=== PATIENT | female | born 1985 | race Caucasian/White ===

== ENCOUNTER 2024-01-26 12:16 | Observation (INO) ==
[2024-01-26 13:36] LABS: Urine Appearance Turbid; Urine Bilirubin Negative (Negative); Urine Blood 1+ (Negative); Urine Color Yellow; Urine Glucose Negative (Negative); Urine Ketones 1+ (Negative); Urine Nitrite 1+ (Negative); Urine Protein 1+ (>=30 mg/dL) (Negative); Urine Specific Gravity 1.011 (1.002-1.030); Urine Urobilinogen Negative (Negative); Urine pH 5.5 (5.0-8.0)
[2024-01-26 13:46] LABS: Urine Bacteria 2+ /HPF (Absent); Urine Red Blood Cell 3+(>10/hpf) /HPF (0-Trace); Urine Squamous Epithelial Cell Present /HPF (Absent); Urine White Blood Cell 3+(>20/hpf) /HPF (0-Trace)
[2024-01-26] MEDS: Lactated Ringers SEPSIS* BAG 2,450 ML IV ONE (15:30)
[2024-01-26 16:04] LABS: ABS Lymphocytes 0.7 10^3/uL (1.0-4.8); ABS Monocytes 1.5 10^3/uL (0.0-0.9); ABS Neutrophils 16.6 10^3/uL (1.5-7.6); Hematocrit 37.1 % (35-45); Hemoglobin 12.1 g/dL (11.5-14.3); Lymphocyte % 3.6 %; Mean Corpuscular Hemoglobin 27.9 pg (27-33); Mean Corpuscular Hgb Conc 32.6 g/dL (31-36); Mean Corpuscular Volume 85.5 fL (80-97); Mean Platelet Volume 8.5 fL (7.5-11.2); Platelet Count 246 10^3/uL (150-450); Red Blood Count 4.33 10^6/uL (3.63-4.92); Red Cell Distribution Width 16.2 % (12-17); White Blood Count 18.9 10^3/uL (3.8-11.8)
[2024-01-26 16:30] LABS: Albumin/Globulin Ratio 1.4 (1-3); C Reactive Protein 310.51 mg/L (<8.01); Calcium 8.8 mg/dL (8.6-10.3); Creatinine, Serum 0.91 mg/dL (0.51-0.95); Globulin 2.9 g/dL (2-4); Potassium 3.9 mmol/L (3.5-5.0); Total Bilirubin 1.2 mg/dL (0.2-1.0); Total Protein 6.9 g/dL (6.4-8.9); eGFR CKD-EPI 83.3 (>60)
[2024-01-26 16:35] LABS: Activated Partial Thrombo Time 37.4 seconds (26.0-38.0); INR 1.54 (0.85-1.14)
[2024-01-26] MEDS: cefTRIAXone 2 gm/50 mL D5W 2 GM/50 ML BAG IV ONE (16:43)
[2024-01-26 17:27] LABS: High Sensitivity Troponin 1 Hr 12 pg/mL (<15)
[2024-01-27] MEDS: Lactated Ringers 1000 ml BAG 1,000 ML IV SCH (00:02)
[2024-01-27 06:57] LABS: Hematocrit 32.3 % (35-45); Hemoglobin 10.5 g/dL (11.5-14.3); Mean Corpuscular Hemoglobin 28.2 pg (27-33); Mean Corpuscular Hgb Conc 32.7 g/dL (31-36); Mean Corpuscular Volume 86.5 fL (80-97); Mean Platelet Volume 8.6 fL (7.5-11.2); Platelet Count 195 10^3/uL (150-450); Red Blood Count 3.73 10^6/uL (3.63-4.92); Red Cell Distribution Width 16.3 % (12-17); White Blood Count 17.2 10^3/uL (3.8-11.8)
[2024-01-27] MEDS ORDERED: Iohexol 180 (CONTRAST) 10 ML SDV IV ONE (07:25)
[2024-01-27 07:46] LABS: Calcium 8.3 mg/dL (8.6-10.3); Creatinine, Serum 0.67 mg/dL (0.51-0.95); Magnesium 1.9 mg/dL (1.9-2.7); eGFR CKD-EPI 115.4 (>60)
[2024-01-27] MEDS ORDERED: fentaNYL 100 mcg/2 ml 50 MCG/ML VIAL ONE (08:04)
[2024-01-27] MEDS ORDERED: Midazolam 2 mg/2 ml VIAL 1 mg/ml 2 ml VIAL (2 mg) ONE (08:04)
[2024-01-27] MEDS ORDERED: Lidocaine 2% PF 5 ML VIAL ONE (08:04)
[2024-01-27 08:19] LABS: ABS Lymphocytes 1.1 10^3/uL (1.0-4.8); ABS Monocytes 1.8 10^3/uL (0.0-0.9); ABS Neutrophils 14.3 10^3/uL (1.5-7.6); ABS Nucleated RBC 0.01 10^3/ul; Eosinophil % 0.1 %; Lymphocyte % 6.2 %; RBC Morphology Normal (Normal)
[2024-01-27] MEDS ORDERED: Famotidine IV 10 MG/ML 2 ml VIAL (20 mg) ONE (09:17)
[2024-01-27] MEDS ORDERED: Propofol 10 MG/ML 20 ML BTL ONE (09:27)
[2024-01-27] MEDS ORDERED: Ondansetron 4 mg VIAL 2 MG/ML 2 ml VIAL ONE (09:27)
[2024-01-27] MEDS ORDERED: Dexamethasone IV 4 MG/ML VIAL 1 ml VIAL ONE (09:27)
[2024-01-27] MEDS ORDERED: Ondansetron 4 mg VIAL 2 MG/ML 2 ml VIAL IV PRN (09:47)
[2024-01-27] MEDS ORDERED: Naloxone 0.4 mg VIAL 0.4 mg/ml 1 ml VIAL IV PRN (09:47)
[2024-01-27] MEDS ORDERED: fentaNYL 100 mcg/2 ml 50 MCG/ML VIAL IV PRN (09:47)
[2024-01-27] MEDS: Ampicillin ADVAN 2 GM in NS 0.9% 100 ml BAG 100 ML IVPB ONE (12:40)
[2024-01-27] MEDS: NS 0.9% IVPB ONE (12:41)
[2024-01-27] MEDS: GENTAMICIN ADULT IVPB ONE (12:41)
[2024-01-27] MEDS: Iohexol 300 (CONTRAST) 10 ML SDV IV ONE (15:51)
[2024-01-27] MEDS ORDERED: cefTRIAXone 1 gm/50 mL D5W 1 GM/50 ML BAG IV SCH (16:00)
[2024-01-27] MEDS: cefTRIAXone 1 gm/50 mL D5W 1 GM/50 ML BAG IV SCH (16:05)
[2024-01-27] MEDS: Ondansetron 4 mg VIAL 2 MG/ML 2 ml VIAL IV PRN (22:42)
[2024-01-27] MEDS: Morphine 2 MG/ML SYRINGE IV PRN (22:44)
[2024-01-28] MEDS: Morphine 2 MG/ML SYRINGE IV PRN (00:46)
[2024-01-28 05:50] LABS: ABS Lymphocytes 1.8 10^3/uL (1.0-4.8); ABS Monocytes 1.3 10^3/uL (0.0-0.9); ABS Neutrophils 12.7 10^3/uL (1.5-7.6); Hematocrit 28.3 % (35-45); Hemoglobin 9.4 g/dL (11.5-14.3); Lymphocyte % 11.6 %; Mean Corpuscular Hemoglobin 28.4 pg (27-33); Mean Corpuscular Hgb Conc 33.2 g/dL (31-36); Mean Corpuscular Volume 85.4 fL (80-97); Platelet Count 201 10^3/uL (150-450); Red Blood Count 3.32 10^6/uL (3.63-4.92); White Blood Count 15.9 10^3/uL (3.8-11.8)
[2024-01-28 06:04] LABS: Anion Gap 10 mmol/L (2-16); Blood Urea Nitrogen 10 mg/dL (6-24); CO2 Carbon Dioxide 24 mmol/L (22-32); Chloride 104 mmol/L (101-111); Creatinine, Serum 0.56 mg/dL (0.51-0.95); Glucose 92 mg/dL (70-100); Potassium 3.6 mmol/L (3.5-5.0); Sodium 138 mmol/L (135-145); eGFR CKD-EPI 120.5 (>60)
[2024-01-28 06:09] LABS: HCG Pregnancy < 0.60 mIU/mL
[2024-01-28] MEDS ORDERED: Iohexol 300 (CONTRAST) 10 ML SDV IV ONE (08:36)
[2024-01-28 10:24] VITALS: BP 132/81
== END 2024-01-28 11:28 | disposition home or self-care (01) ==
LOC: EDHOLD 12:16 → ED 12:16 → SUATTDRO 23:48 → AA 01-27 07:42 → SSU 01-27 07:52
PROVIDERS: ADMIT Student in an Organized Health Care Education/Training Program; ATTEND Hospitalist

== ENCOUNTER 2024-03-31 10:42 | Observation (INO) ==
[2024-03-31] MEDS ORDERED: cefTRIAXone 2 GM ADDV.VIAL 2 GM in NS 0.9% 100 ml BAG 100 ML IV ONE (11:13)
[2024-03-31 11:24] LABS: Hemoglobin 12.5 g/dL (11.5-14.3); Mean Corpuscular Hemoglobin 29.3 pg (27-33); Mean Corpuscular Hgb Conc 32.9 g/dL (31-36); Mean Corpuscular Volume 89.3 fL (80-97); Mean Platelet Volume 8.2 fL (7.5-11.2); Platelet Count 339 10^3/uL (150-450); Red Blood Count 4.26 10^6/uL (3.63-4.92); Red Cell Distribution Width 15.8 % (12-17); White Blood Count 23.5 10^3/uL (3.8-11.8)
[2024-03-31 11:29] LABS: ABS Basophils 0.1 10^3/uL (0.0-0.1); ABS Lymphocytes 0.5 10^3/uL (1.0-4.8); ABS Monocytes 0.8 10^3/uL (0.0-0.9); ABS Neutrophils 22.1 10^3/uL (1.5-7.6); Lymphocyte % 1.9 %
[2024-03-31] MEDS: Lactated Ringers 1000 ml BAG 1,000 ML IV SCH ×2 (11:48→15:34)
[2024-03-31 12:05] LABS: ALT 14 U/L (7-52); Albumin 4.2 g/dL (3.5-5.7); Albumin/Globulin Ratio 1.5 (1-3); Alkaline Phosphatase 60 U/L (35-149); Anion Gap 10 mmol/L (2-16); Blood Urea Nitrogen 11 mg/dL (6-24); C Reactive Protein 150.14 mg/L (<8.01); CO2 Carbon Dioxide 23 mmol/L (22-32); Calcium 8.7 mg/dL (8.6-10.3); Chloride 97 mmol/L (101-111); Creatinine, Serum 0.91 mg/dL (0.51-0.95); Globulin 2.8 g/dL (2-4); Glucose 102 mg/dL (70-100); HCG Pregnancy < 0.60 mIU/mL; Sodium 130 mmol/L (135-145); eGFR CKD-EPI 83.3 (>60)
[2024-03-31 12:13] LABS: Urine Appearance Turbid; Urine Bilirubin Negative (Negative); Urine Blood 2+ (Negative); Urine Color Light-Yellow; Urine Glucose Negative (Negative); Urine Ketones Negative (Negative); Urine Nitrite Negative (Negative); Urine Protein Trace (Negative); Urine Specific Gravity 1.007 (1.002-1.030); Urine Urobilinogen Negative (Negative); Urine pH 6.5 (5.0-8.0)
[2024-03-31 12:26] LABS: Urine Bacteria Absent /HPF (Absent); Urine Red Blood Cell 2+(6-10/hpf) /HPF (0-Trace); Urine Squamous Epithelial Cell Present /HPF (Absent); Urine White Blood Cell 3+(>20/hpf) /HPF (0-Trace)
[2024-03-31 13:01] LABS: Potassium Redraw 3.8 mmol/L (3.5-5.0)
[2024-03-31] MEDS: cefTRIAXone 2 gm/50 mL D5W 2 GM/50 ML BAG IV ONE (13:42)
[2024-03-31] MEDS ORDERED: Iohexol 180 (CONTRAST) 10 ML SDV IV ONE (14:16)
[2024-03-31] MEDS ORDERED: Lidocaine 2% PF 5 ML VIAL ONE (14:26)
[2024-03-31] MEDS ORDERED: Dexamethasone IV 4 MG/ML VIAL 1 ml VIAL ONE (14:26)
[2024-03-31] MEDS ORDERED: fentaNYL 100 mcg/2 ml 50 MCG/ML VIAL ONE (14:26)
[2024-03-31] MEDS ORDERED: Propofol 10 MG/ML 20 ML BTL ONE (14:26)
[2024-03-31] MEDS ORDERED: Phenylephrine 40 mcg/mL 10mL (400mcg) SYRINGE ONE (14:26)
[2024-03-31] MEDS ORDERED: Ondansetron 4 mg VIAL 2 MG/ML 2 ml VIAL ONE ×2 (14:26→14:36)
[2024-03-31] MEDS ORDERED: Midazolam 2 mg/2 ml VIAL 1 mg/ml 2 ml VIAL (2 mg) ONE (14:27)
[2024-03-31] MEDS ORDERED: Scopolamine 1 mg/72hr PATCH ONE (14:36)
[2024-03-31] MEDS ORDERED: Acetaminophen IV 1 GM/100ML 1,000 MG/100 ML BAG IV ONE (14:44)
[2024-03-31] MEDS ORDERED: Metoclopramide 5 MG/ML VIAL (10 mg) IV PRN (15:22)
[2024-03-31] MEDS ORDERED: fentaNYL 100 mcg/2 ml 50 MCG/ML VIAL IV PRN (15:22)
[2024-03-31] MEDS ORDERED: Naloxone 0.4 mg VIAL 0.4 mg/ml 1 ml VIAL IV PRN (15:22)
[2024-03-31] MEDS: Scopolamine 1 mg/72hr PATCH TRANSDERM ONE (15:34)
[2024-03-31] MEDS: Buffered Lidocaine 1% SYRIN 1 ml INTRADERM ONE (15:35)
[2024-03-31] MEDS ORDERED: NS 0.45% 1000 ml BAG 1,000 ML IV SCH (16:00)
[2024-03-31] MEDS ORDERED: Polyethylene Glycol 3350 17 GM PACKET PO PRN (16:16)
[2024-03-31] MEDS ORDERED: Al Hydrox/Mg Hydrox/Simet LIQ 30 ML UDC PO PRN (16:16)
[2024-03-31] MEDS: NS 0.9% 1000 ml BAG 1,000 ML IV SCH (16:58)
[2024-03-31] MEDS: Lactated Ringers 1000 ml BAG 1,000 ML IV ONE (22:34)
[2024-04-01] MEDS: Lactated Ringers 1000 ml BAG 1,000 ML IV SCH (00:16)
[2024-04-01 05:53] LABS: ABS Lymphocytes 0.7 10^3/uL (1.0-4.8); ABS Monocytes 0.6 10^3/uL (0.0-0.9); ABS Neutrophils 14.3 10^3/uL (1.5-7.6); Hemoglobin 10.6 g/dL (11.5-14.3); Lymphocyte % 4.6 %; Mean Corpuscular Hemoglobin 29.6 pg (27-33); Mean Corpuscular Volume 89.9 fL (80-97); Mean Platelet Volume 8.4 fL (7.5-11.2); Platelet Count 285 10^3/uL (150-450); Red Blood Count 3.57 10^6/uL (3.63-4.92); Red Cell Distribution Width 15.4 % (12-17); White Blood Count 15.6 10^3/uL (3.8-11.8)
[2024-04-01 06:23] LABS: Calcium 8.1 mg/dL (8.6-10.3); Creatinine, Serum 0.66 mg/dL (0.51-0.95); Potassium 4.3 mmol/L (3.5-5.0); eGFR CKD-EPI 115.8 (>60)
[2024-04-01 09:16] VITALS: BP 92/55
[2024-04-01] MEDS: cefTRIAXone 1 gm/50 mL D5W 1 GM/50 ML BAG IV SCH (12:11)
== END 2024-04-01 13:39 | disposition home or self-care (01) ==
LOC: ED 10:42 → EDHOLD 10:42 → AA 14:23 → MED 15:12
PROVIDERS: ADMIT Internal Medicine; ATTEND Internal Medicine